=== PATIENT | male | born 1980 | race Caucasian/White ===

== ENCOUNTER 2022-11-28 07:03 | Inpatient (IN) ==
[2022-11-28] MEDS ORDERED: fentaNYL citrate PF 100 MCG/2 ML VIAL ONE ×2 (07:07→09:34)
[2022-11-28] MEDS ORDERED: niCARdipine HCL INJ 2.5 MG/ML 10 ML AMP ONE ×2 (07:07→09:34)
[2022-11-28] MEDS ORDERED: MIDAZOLAM HCL 1 MG/ML 2ML VIAL ONE ×2 (07:07→09:34)
[2022-11-28] MEDS ORDERED: HEPARIN (PORCINE) 1000 UNIT/ML 10 ML (CATH LAB USE ONLY) ONE ×2 (07:07→09:34)
[2022-11-28] MEDS ORDERED: ONDANSETRON INJ 2 MG/ML 2 ML VIAL IV STA (07:07)
[2022-11-28] MEDS ORDERED: FAMOTIDINE 20MG IV PUSH 20 MG/5 ML SYR IV STA (07:07)
[2022-11-28] MEDS ORDERED: NITROGLYCERIN/D5W 100MCG/ML 20ML SYR ONE ×2 (07:08→09:35)
[2022-11-28] MEDS ORDERED: SODIUM CHLORIDE 0.9% 1000ML 1,000 ML IV SCH ×2 (07:15→08:45)
[2022-11-28] MEDS ORDERED: MoRPHine SULFATE 4 MG/ML 1 ML CARP\\VIAL IV STA ×2 (07:16→07:42)
--- NOTE | 2022-11-28 07:26 | Emergency Department Note ---
Impression & Plan Chest pain, Elevated troponin, Tobacco abuse, ACS (acute coronary syndrome) ED Provider Note ED Provider Note NAME: ARMAND DUNHAM AGE:42 SEX: Male : 1980 ARRIVES VIA: EMS INFORMANT: Patient ED PROVIDER(s): Mireya Newby DO CHIEF COMPLAINT: Chest pain HPI: This is a 42-year-old male brought in by EMS as a heart alert. EMS called for command however they were unable to transmit the EKG. Based on their desc ription of patient's appearance and symptoms as well as their interpretation of the EKG, a heart alert was called. On arrival here, patient states that chest pain woke him up from sleep and he began feeling nauseated and had recurrent episodes of vomiting. He states he then felt short of breath and sweaty. Patient states he smokes 3 packs daily and his father has heart history although he does not know how old his father was when he first began having problems. Patient states he was drinking alcohol last night and does have a history of GERD. He states he did try Tylenol and an antacid at home without any relief this morning. No blood noted in the emesis. No accompanying abdominal pain. No recent illness or fevers. PAST MEDICAL HISTORY:See Below PAST SURGICAL HISTORY:See Below FAMILY HISTORY:See Below SOCIAL HISTORY:See Below HOME MEDICATIONS:See Below ALLERGIES:See Below VITALS:See Below PHYSICAL EXAMINATION: GENERAL: alert, unwell appearing, well nourished, no distress, non-toxic, diaphoresis noted EYE EXAM: normal conjunctiva, PERRL and EOM's grossly intact OROPHARYNX: no exudate, no erythema, lips, buccal mucosa, and tongue normal and mucous membranes are dry NECK: supple, no nuchal rigidity, no adenopathy, non-tender LUNGS: Clear to auscultation. Normal chest wall mechanics, no w/r/r HEART: no murmurs, S1 normal and S2 normal ABDOMEN: abdomen soft, non-tender, normo-active bowel sounds, no masses, no rebound or guarding. BACK: Back is symmetrical on inspection and there is no deformity, no midline tenderness, no CVA tenderness. SKIN: no rashes, petechiae, orbruising UPPER EXTREMITIES: upper extremities are grossly normal. FROM, nml pulses b/l. LOWER EXTREMITIES: No pitting edema. FROM, nml pulses b/l. NEURO EXAM: Normal sensorium, cranial nerves II-XII grossly intact, normal speech, no facial droop,nogross weakness of arms, no gross weakness of legs. Gross sensation intact. No ataxia. Vital Signs: reviewed and remarkable Differential Diagnosis: Differential diagnoses includes but is not limited to acute coronary syndrome, pericarditis, pulmonary embolus, aortic dissection, pneumonia, pneumothorax, musculoskeletal, Boerhaave's esophagus, Andria-Baldwin tear, GI bleed, GERD, perforation, as well as others were considered MEDICAL DECISION MAKING: This is a 42-year-old male who was brought in by EMS for chest pain. Patient initially made a heart alert, however upon review of EKGs on arrival and in conjunction with Dr. Walker, we elected to proceed with other evaluation and lieu of going straight for cardiac catheterization as patient with no obvious EKG changes suggestive of a STEMI and possible alternative diagnosis given addition al history that patient was able to report. Labs drawn and sent, IV established, EKG and chest x-ray performed at bedside and interpreted by me. Patient started on gentle IV fluid hydration, monitor on telemetry, given IV morphine, IV Zofran, and IV Pepcid initially. Patient received several doses of IV morphine due to ongoing pain, IV Protonix and nitro were added. Patient continued to have ongoing pain was found to have an elevated troponin. I discussed the case with Dr. Walker again we opted to perform CT angiography of the chest to rule out additional pathology. CTA was reassuring, and decision made in conjunction with Dr. Walker to send the patient for urgent cardiac catheterization. Patient and family updated at bedside several times, they verbalized understanding and were in agreement with the plan Consultation(s): 0720: Discussed with Dr. Walker at bedside. 08: Updated Dr. Walker. Patient is still having pain after several doses of morphine. After discussion, we will proceed with CT angiography of the chest as a precaution to rule out additional pathology. 09: CTA negative, Dr. Walker at bedside again and will plan to take for cardiac catheterization. 0930: Discussed with Jenna Barroso hospitalist team. ER Treatment Provided: See below Diagnostics Interpreted By Me: -ECG: Normal sinus at 89, normal axis, normal intervals, subtle mild elevation noted in 3, aVF, approximately 1/2 to 1 mm, no other reciprocal changes, appearance of likely early repolarization in precordial leads -Cardiac Monitoring: An order was placed for continuous cardiac monitoring. The monitor shows a rate of 68 with normal sinus rhythm. -Laboratory studies: As stated above and show below. -Imaging studies: X-ray Chest: A single view study of the chest was reviewed and was negative for cardiomegaly, focal infiltrate, effusion, pulmonary edema, or wide mediastinum. Triage Nursing Note Reviewed Prior/Outside Records Reviewed Procedures: [] Critical Care: Critical care of 52 min performed to assess and manage high likelihood of life- threatening ACS, involving labs and imaging performed with assessment to evaluate chest pain diagnosis with frequent reassessment. This time includes bedside time, treatment discussions with patient/family/consultants, documentation time and excludes procedure time. Past Med/Surg History Medical History Opioid use disorder on Subutex Surgical History H/O vasectomy History of cholecystectomy Family History (Updated 11/28/22 @ 12:02 by Toy Vasquez MD) Father Heart disease Social History Smoking Status: Current every day smoker Tobacco Type: Cigarettes Second Hand Exposure: No; Do You Dip or Chew Tobacco: No; Tobacco Cessation Education Requested by Patient: No Hx Alcohol Use: No (Social only) Hx Substance Use: No Preferred Language: Ukrainian Communication Ability: Effective Pad Extractor Tender Required: No Beliefs That Will Affect Care: None Current Living Situation: Spouse Other Information That Helps Us Care for You: No Feels Safe at Home: Yes Safety Concerns: Feels Safe At This Time Assistive Devices: None Allergies Allergies Allergy/AdvReac Type Severity Reaction Status Date / Time No Known Allergies Allergy Verified 09/09/18 16:47 Home Meds Home Medications Medication Instructions Recorded Confirmed buprenorphine HCl 8 mg sublingual 8 mg sublingual TID 11/28/22 11/28/22 tablet Results & Data (ED) Vital Signs Vital Signs - 24 hr 11/28/22 07:05 11/28/22 07:34 11/28/22 07:36 Pulse Rate 90 Pulse Rate [Apical] Pulse Rhythm [Apical] Respiratory Rate 20 Respiratory Effort / Characteristics Non-Labored Respiratory Depth Normal Blood Pressure [Right Arm] Blood Pressure Mean [Right Arm] Pulse Oximetry 94 93 95 Oxygen Delivery Method Room Air Room Air Room Air Oxygen Flow Rate 0 Sepsis Recent Fever Within 48 Hours No Sepsis New/Unexplained Change in Mental Status N/A Sepsis Action Taken by Nursing No Action Required Oxygen Flow Rate - Titration 2 Pulse Oximetry Post Tiitration 96 11/28/22 07:18 11/28/22 08:12 11/28/22 08:30 Pulse Rate 81 Pulse Rate [Apical] 65 66 Pulse Rhythm [Apical] Regular Respiratory Rate 15 22 Respiratory Effort / Characteristics Non-Labored Spontaneous Non-Labored Spontaneous Respiratory Depth Normal Normal Blood Pressure [Right Arm] 136/93 137/89 Blood Pressure Mean [Right Arm] 107 105 Pulse Oximetry 96 97 Oxygen Delivery Method Room Air Room Air Oxygen Flow Rate Sepsis Recent Fever Within 48 Hours Sepsis New/Unexplained Change in Mental Status Sepsis Action Taken by Nursing Oxygen Flow Rate - Titration Pulse Oximetry Post Tiitration 11/28/22 09:30 Pulse Rate Pulse Rate [Apical] 68 Pulse Rhythm [Apical] Respiratory Rate 19 Respiratory Effort / Characteristics Non-Labored Spontaneous Respiratory Depth Normal Blood Pressure [Right Arm] 145/93 H Blood Pressure Mean [Right Arm] 110 Pulse Oximetry 94 Oxygen Delivery Method Room Air Oxygen Flow Rate Sepsis Recent Fever Within 48 Hours Sepsis New/Unexplained Change in Mental Status Sepsis Action Taken by Nursing Oxygen Flow Rate - Titration Pulse Oximetry Post Tiitration Laboratory Data 11/28/22 07:09 11/28/22 07:09 Lab Results 11/28/22 11/28/22 11/28/22 Range/Units 07:09 07:09 07:09 WBC 16.67 H (4.8-10.8) K/ul RBC 5.92 (4.70-6.10) M/uL Hgb 19.6 H (14.0-18.0) g/dl POC Hgb (14.0-18.0) g/dl Hct 53.9 H (42.0-52.0) % POC Hct (42-52) % MCV 91.0 (80.0-100.0) fL MCH 33.1 (25.0-34.0) pg MCHC 36.4 H (32.0-36.0) g/dL RDW Std Deviation 42.0 (36.4-46.3) fL RDW Coeff of Valentina 12.8 (11.5-14.5) % Plt Count 359 (130-400) K/uL MPV 9.6 (9.4-12.4) fL Immature Gran % (Auto) 0.8 % Neut % (Auto) 85.1 % Lymph % (Auto) 9.2 % Powell % (Auto) 4.2 % Eos % (Auto) 0.1 % Baso % (Auto) 0.6 % Neut # (Auto) 14.19 H (1.40-6.50) K/uL Lymph # (Auto) 1.54 (1.2-3.4) K/uL Powell # (Auto) 0.70 H (0.11-0.59) K/uL Eos # (Auto) 0.01 (0-0.50) K/uL Baso # (Auto) 0.10 (0-0.2) K/uL Immature Gran # (Auto) 0.13 (0.01-0.20) K/uL PT 11.4 (9.0-12.0) Seconds INR 1.0 (0.9-1.1) APTT 26.2 (21.0-31.0) Seconds PTT Ratio 0.9 Activ Coag Time Kaolin (94-140) SECONDS POC Sodium (135-144) mmol/L Sodium 139 (136-145) mmol/L POC Potassium (3.3-5.0) mmol/L Potassium 4.4 (3.5-5.1) mmol/L POC Chloride (101-112) mmol/L Chloride 102 (98-107) mmol/L Carbon Dioxide 27 (21-32) mmol/L POC Total CO2 (24-31) mmol/L Anion Gap 10 (3-11) POC Anion Gap (16-25) mmol/L POC BUN (7-18) mg/dl BUN 8 (6-23) mg/dl Creatinine 0.88 (0.6-1.4) mg/dl POC Creatinine (0.6-1.3) mg/dl Est Cr Clr Drug Dosing 115.9 ml/min Est GFR ( Amer) 121.1 ml/min Est GFR (Non-Af Amer) 104.5 ml/min BUN/Creatinine Ratio 9.1 L (10-20) Glucose 124 H (70-99(Fasting)) mg/dl POC Glucose (other) (70-99) mg/dl Calcium 9.7 (8.6-10.3) mg/dl POC Ioniz Calcium Nohelia (1.12-1.32) mmol/l Magnesium 2.1 (1.7-2.4) mg/dl Total Bilirubin 0.6 (0.2-1.0) mg/dl AST 44 H (13-39) U/L ALT 60 H (7-52) U/L Alkaline Phosphatase 111 H (34-104) U/L Total Creatine Kinase 177 (30-223) U/L Troponin I High Sens 300.5 H* (0-20) pg/ml B-Natriuretic Peptide (0-100) pg/ml Total Protein 8.2 (6.0-8.3) gm/dl Albumin 4.7 (3.4-5.0) gm/dl Globulin 3.5 (2.5-4.0) gm/dl Albumin/Globulin Ratio 1.3 (0.9-2) Lipase 23 (11-82) U/L TSH (0.300-4.500) uIu/ml SARS-CoV-2, RNA, NAAT (NEGATIVE) 11/28/22 11/28/22 11/28/22 Range/Units 07:09 07:09 07:13 WBC (4.8-10.8) K/ul RBC (4.70-6.10) M/uL Hgb (14.0-18.0) g/dl POC Hgb (14.0-18.0) g/dl Hct (42.0-52.0) % POC Hct (42-52) % MCV (80.0-100.0) fL MCH (25.0-34.0) pg MCHC (32.0-36.0) g/dL RDW Std Deviation (36.4-46.3) fL RDW Coeff of Valentina (11.5-14.5) % Plt Count (130-400) K/uL MPV (9.4-12.4) fL Immature Gran % (Auto) % Neut % (Auto) % Lymph % (Auto) % Powell % (Auto) % Eos % (Auto) % Baso % (Auto) % Neut # (Auto) (1.40-6.50) K/uL Lymph # (Auto) (1.2-3.4) K/uL Powell # (Auto) (0.11-0.59) K/uL Eos # (Auto) (0-0.50) K/uL Baso # (Auto) (0-0.2) K/uL Immature Gran # (Auto) (0.01-0.20) K/uL PT (9.0-12.0) Seconds INR (0.9-1.1) APTT (21.0-31.0) Seconds PTT Ratio Activ Coag Time Kaolin (94-140) SECONDS POC Sodium (135-144) mmol/L Sodium (136-145) mmol/L POC Potassium (3.3-5.0) mmol/L Potassium (3.5-5.1) mmol/L POC Chloride (101-112) mmol/L Chloride (98-107) mmol/L Carbon Dioxide (21-32) mmol/L POC Total CO2 (24-31) mmol/L Anion Gap (3-11) POC Anion Gap (16-25) mmol/L POC BUN (7-18) mg/dl BUN (6-23) mg/dl Creatinine (0.6-1.4) mg/dl POC Creatinine (0.6-1.3) mg/dl Est Cr Clr Drug Dosing ml/min Est GFR ( Amer) ml/min Est GFR (Non-Af Amer) ml/min BUN/Creatinine Ratio (10-20) Glucose (70-99(Fasting)) mg/dl POC Glucose (other) (70-99) mg/dl Calcium (8.6-10.3) mg/dl POC Ioniz Calcium Nohelia (1.12-1.32) mmol/l Magnesium (1.7-2.4) mg/dl Total Bilirubin (0.2-1.0) mg/dl AST (13-39) U/L ALT (7-52) U/L Alkaline Phosphatase (34-104) U/L Total Creatine Kinase (30-223) U/L Troponin I High Sens (0-20) pg/ml B-Natriuretic Peptide 26 (0-100) pg/ml Total Protein (6.0-8.3) gm/dl Albumin (3.4-5.0) gm/dl Globulin (2.5-4.0) gm/dl Albumin/Globulin Ratio (0.9-2) Lipase (11-82) U/L TSH 1.622 (0.300-4.500) uIu/ml SARS-CoV-2, RNA, NAAT NEGATIVE (NEGATIVE) 11/28/22 11/28/22 Range/Units 07:17 10:18 WBC (4.8-10.8) K/ul RBC (4.70-6.10) M/uL Hgb (14.0-18.0) g/dl POC Hgb 19.7 H (14.0-18.0) g/dl Hct (42.0-52.0) % POC Hct 58 H (42-52) % MCV (80.0-100.0) fL MCH (25.0-34.0) pg MCHC (32.0-36.0) g/dL RDW Std Deviation (36.4-46.3) fL RDW Coeff of Valentina (11.5-14.5) % Plt Count (130-400) K/uL MPV (9.4-12.4) fL Immature Gran % (Auto) % Neut % (Auto) % Lymph % (Auto) % Powell % (Auto) % Eos % (Auto) % Baso % (Auto) % Neut # (Auto) (1.40-6.50) K/uL Lymph # (Auto) (1.2-3.4) K/uL Powell # (Auto) (0.11-0.59) K/uL Eos # (Auto) (0-0.50) K/uL Baso # (Auto) (0-0.2) K/uL Immature Gran # (Auto) (0.01-0.20) K/uL PT (9.0-12.0) Seconds INR (0.9-1.1) APTT (21.0-31.0) Seconds PTT Ratio Activ Coag Time Kaolin 263 H (94-140) SECONDS POC Sodium 140 (135-144) mmol/L Sodium (136-145) mmol/L POC Potassium 4.4 (3.3-5.0) mmol/L Potassium (3.5-5.1) mmol/L POC Chloride 101 (101-112) mmol/L Chloride (98-107) mmol/L Carbon Dioxide (21-32) mmol/L POC Total CO2 25 (24-31) mmol/L Anion Gap (3-11) POC Anion Gap 19.0 (16-25) mmol/L POC BUN 8 (7-18) mg/dl BUN (6-23) mg/dl Creatinine (0.6-1.4) mg/dl POC Creatinine 0.8 (0.6-1.3) mg/dl Est Cr Clr Drug Dosing ml/min Est GFR ( Amer) ml/min Est GFR (Non-Af Amer) ml/min BUN/Creatinine Ratio (10-20) Glucose (70-99(Fasting)) mg/dl POC Glucose (other) 131 H (70-99) mg/dl Calcium (8.6-10.3) mg/dl POC Ioniz Calcium Nohelia 1.11 L (1.12-1.32) mmol/l Magnesium (1.7-2.4) mg/dl Total Bilirubin (0.2-1.0) mg/dl AST (13-39) U/L ALT (7-52) U/L Alkaline Phosphatase (34-104) U/L Total Creatine Kinase (30-223) U/L Troponin I High Sens (0-20) pg/ml B-Natriuretic Peptide (0-100) pg/ml Total Protein (6.0-8.3) gm/dl Albumin (3.4-5.0) gm/dl Globulin (2.5-4.0) gm/dl Albumin/Globulin Ratio (0.9-2) Lipase (11-82) U/L TSH (0.300-4.500) uIu/ml SARS-CoV-2, RNA, NAAT (NEGATIVE) Administered Medications Metoprolol Tartrate (Metoprolol Tartrate 25 Mg Tab) 25 mg PO TID LIS Stop: 12/28/22 20:59 Last Admin: 11/28/22 20:15 Dose: 25 mg Documented By: AK Nicotine (Nicotine 21 Mg/24 Hr Tdsy) 21 mg TD QAM LIS Stop: 12/28/22 11:29 Last Admin: 11/28/22 13:11 Dose: 21 mg Documented By: CA Ticagrelor (Ticagrelor 90 Mg Tab) 90 mg PO BID LIS Stop: 12/28/22 20:59 Last Admin: 11/28/22 20:15 Dose: 90 mg Documented By: BEATRICE Discontinued Medications Buprenorphine HCl (Buprenorphine Hcl 8 Mg Subl) 8 mg SL TID LIS Stop: 12/28/22 13:59 Last Admin: 11/28/22 20:13 Dose: 8 mg Documented By: Admin: 11/28/22 13:11 Dose: 8 mg Documented By: MARKY Fentanyl Citrate (Fentanyl Citrate Pf 100 Mcg/2 Ml Vial) Confirm Administered Dose 100 mcg .ROUTE .STK-MED ONE Stop: 11/28/22 07:08 Last Admin: 11/28/22 11:33 Dose: Not Given Documented By: MARKY Fentanyl Citrate (Fentanyl Citrate Pf 100 Mcg/2 Ml Vial) 50 mcg IV NOW STA Stop: 11/28/22 08:11 Last Admin: 11/28/22 08:24 Dose: 50 mcg Documented By: VANNESA Fentanyl Citrate (Fentanyl Citrate Pf 100 Mcg/2 Ml Vial) Confirm Administered Dose 100 mcg .ROUTE .STK-MED ONE Stop: 11/28/22 09:35 Last Admin: 11/28/22 11:34 Dose: Not Given Documented By: MARKY Heparin Sodium (Porcine) (Heparin (Porcine) 1000 Unit/Ml 10 Ml (Jordan Worker Use Only)) Confirm Administered Dose 10,000 units .ROUTE .STK-MED ONE Stop: 11/28/22 07:08 Last Admin: 11/28/22 11:34 Dose: Not Given Documented By: MARKY Heparin Sodium (Porcine) (Heparin (Porcine) 1000 Unit/Ml 10 Ml (Jordan Worker Use Only)) Confirm Administered Dose 10,000 units .ROUTE .STK-MED ONE Stop: 11/28/22 09:35 Last Admin: 11/28/22 11:34 Dose: Not Given Documented By: MARKY Heparin Sodium/Sodium Chloride (Heparin In Nss Infusion 1000 Unit/500 Ml (2 U/Ml) Bag) Confirm Administered Dose 3,000 units IV .STK-MED ONE Stop: 11/28/22 07:09 Last Admin: 11/28/22 11:34 Dose: Not Given Documented By: MARKY Heparin Sodium/Sodium Chloride (Heparin In Nss Infusion 1000 Unit/500 Ml (2 U/Ml) Bag) Confirm Administered Dose 3,000 units IV .STK-MED ONE Stop: 11/28/22 09:35 Last Admin: 11/28/22 11:35 Dose: Not Given Documented By: MARKY Famotidine (Pepcid 20mg Iv Push) 20 mg in 5 mls @ 2.5 mls/min IV NOW STA Stop: 11/28/22 07:08 Last Admin: 11/28/22 07:18 Dose: 2.5 mls/min Documented By: AM Sodium Chloride (Nss 1000ml) 1,000 mls @ 125 mls/hr IV .Q8H LIS Stop: 12/28/22 07:14 Last Infusion: 11/28/22 09:00 Dose: 0 mls/hr Documented By: Admin: 11/28/22 07:20 Dose: 125 mls/hr Documented By: AM Acetaminophen (Ofirmev) 1,000 mg in 100 mls @ 400 mls/hr IV NOW STA Stop: 11/28/22 07:57 Last Infusion: 11/28/22 08:03 Dose: 0 mls/hr Documented By: Admin: 11/28/22 07:48 Dose: 400 mls/hr Documented By: VANNESA Pantoprazole Sodium 40 mg/ (Syringe) 10 mls @ 5 mls/min IV NOW ONE Stop: 11/28/22 08:11 Last Admin: 11/28/22 09:00 Dose: 5 mls/min Documented By: VANNESA Sodium Chloride (Nss 1000ml) 1,000 mls @ 100 mls/hr IV .Q10H LIS Stop: 11/28/22 13:09 Last Infusion: 11/28/22 17:21 Dose: 0 mls/hr Documented By: Admin: 11/28/22 09:02 Dose: 125 mls/hr Documented By: VANNESA Ioversol (Optiray 320 500ml) 120 ml IV ONCE ONE Stop: 11/28/22 08:54 Last Admin: 11/28/22 08:54 Dose: 120 ml Documented By: JENELLE Metoprolol Tartrate (Metoprolol Tartrate 25 Mg Tab) 12.5 mg PO TID LIS Stop: 12/28/22 13:59 Last Admin: 11/28/22 13:11 Dose: 12.5 mg Documented By: MARKY Metoprolol Tartrate (Metoprolol Tartrate 25 Mg Tab) 25 mg PO NOW STA Stop: 11/28/22 15:16 Last Admin: 11/28/22 15:31 Dose: 25 mg Documented By: CA Metoprolol Tartrate (Metoprolol Tartrate 1 Mg/Ml Vial) 5 mg IV NOW STA Stop: 11/28/22 15:17 Last Admin: 11/28/22 15:31 Dose: 5 mg Documented By: CA Midazolam HCl (Midazolam Hcl 1 Mg/Ml 2ml Vial) Confirm Administered Dose 2 mg .ROUTE .STK-MED ONE Stop: 11/28/22 07:08 Last Admin: 11/28/22 11:34 Dose: Not Given Documented By: CA Midazolam HCl (Midazolam Hcl 1 Mg/Ml 2ml Vial) Confirm Administered Dose 2 mg .ROUTE .STK-MED ONE Stop: 11/28/22 09:35 Last Admin: 11/28/22 11:35 Dose: Not Given Documented By: CA Morphine Sulfate (Morphine Sulfate 4 Mg/Ml 1 Ml Carp\Vial) 4 mg IV NOW STA Stop: 11/28/22 07:17 Last Admin: 11/28/22 07:22 Dose: 4 mg Documented By: AM Morphine Sulfate (Morphine Sulfate 4 Mg/Ml 1 Ml Carp\Vial) 4 mg IV NOW STA Stop: 11/28/22 07:43 Last Admin: 11/28/22 07:46 Dose: 4 mg Documented By: Nicardipine HCl (Nicardipine Hcl Inj 2.5 Mg/Ml 10 Ml Amp) Confirm Administered Dose 25 mg .ROUTE .STK-MED ONE Stop: 11/28/22 07:08 Last Admin: 11/28/22 11:34 Dose: Not Given Documented By: MARKY Nicardipine HCl (Nicardipine Hcl Inj 2.5 Mg/Ml 10 Ml Amp) Confirm Administered Dose 25 mg .ROUTE .STK-MED ONE Stop: 11/28/22 09:35 Last Admin: 11/28/22 11:35 Dose: Not Given Documented By: MARKY Nitroglycerin (Nitroglycerin 2% Ointment 30gm Tube) 1 inch EXT NOW STA Stop: 11/28/22 08:08 Last Admin: 11/28/22 08:12 Dose: 1 inch Documented By: Nitroglycerin/Dextrose (Nitroglycerin/D5w 100mcg/Ml 20ml Syr) Confirm Administered Dose 2,000 mcg .ROUTE .STK-MED ONE Stop: 11/28/22 07:09 Last Admin: 11/28/22 11:34 Dose: Not Given Documented By: MARKY Nitroglycerin/Dextrose (Nitroglycerin/D5w 100mcg/Ml 20ml Syr) Confirm Admini stered Dose 2,000 mcg .ROUTE .STK-MED ONE Stop: 11/28/22 09:36 Last Admin: 11/28/22 11:35 Dose: Not Given Documented By: MARKY Ondansetron HCl (Ondansetron Inj 2 Mg/Ml 2 Ml Vial) 4 mg IV NOW STA Stop: 11/28/22 07:08 Last Admin: 11/28/22 07:17 Dose: 4 mg Documented By: AM Ticagrelor (Ticagrelor 90 Mg Tab) Confirm Administered Dose 180 mg .ROUTE .STK- MED ONE Stop: 11/28/22 10:38 Last Admin: 11/28/22 11:00 Dose: 180 mg Documented By: MARKY Imaging Data Radiologist's Impression: Chest X-Ray 11/28/22 07:07 XR chest 1V portable HISTORY: Chest pain, nonspecific COMPARISON: None. FINDINGS: There are low lung volumes. No focal lung consolidations to suggest a pneumonia. No evidence for pulmonary edema. The cardiac silhouette is top normal in size. No pleural effusions. No pneumothorax. No acute fractures identified. Right-sided supraspinatus calcific tendinitis is noted. IMPRESSION: Low lung volumes. Otherwise, no acute process within the chest. ACT 112: Negative or not required by law. Electronically signed by: Elias Sylvester M.D. 11/28/2022 8:13 AM Chest CTA 11/28/22 08:35 CHEST CTA for AORTIC DISSECTION CT DOSE: 767.23 mGy.cm HISTORY: Chest pain extend into back and bilateral upper extremity TECHNIQUE: Multiaxial CT images of the chest were performed both before and after the intravenous administration of contrast to evaluate the aorta. Maximal intensity projection images were also obtained. A dose lowering technique was utilized adhering to the principles of ALARA. COMPARISON STUDY: None. FINDINGS: No acute fractures identified within the chest. No pneumothorax. There is mild diffuse bronchial wall thickening. Otherwise, the central airways are patent. Mild emphysema is noted. There is a 3 mm nodule within the left lower lobe on image 194. There are 2 subcentimeter nodules within the left lower lobe on image 143 with the largest measuring 4 mm. There is a 5 mm subpleural nodule along the left major fissure on image 150. Patchy groundglass densities within the lower lobes posteriorly are nonspecific but favor dependent change /atelectasis. A mild pneumonitis could also have a similar appearance in the appropriate clinical setting. No evidence for pulmonary edema. Noncontrast imaging through the chest shows no evidence for an intramural hematoma within the thoracic aorta. The thoracic aorta is normal and course and caliber with no evidence for a dissection. The heart is top normal in size. The central pulmonary arteries are patent. A 5 mm right thyroid nodule does not meet CT criteria for follow-up. Limited views of the upper abdomen demonstrate a normal liver, spleen, and adrenal glands. Prior cholecystectomy. Normal esophagus. No mediastinal or hilar lymphadenopathy. IMPRESSION: 1. No evidence for an aortic dissection. 2. The central pulmonary arteries are patent. 3. Mild emphysema. 4. Patchy groundglass densities within the lower lobes posteriorly are nonspecific but favor dependent change/atelectasis. A mild pneumonitis could also have a similar appearance in the appropriate clinical setting. 5. A few scattered subcentimeter pulmonary nodules which measure up to 5 mm as described above. Please refer to below summary of Fleischner criteria recommendations for follow- up of incidental CT nodules (Farideh Person, Guidelines for management of small pulmonary nodules detected on CT scans: A statement from the Fleischner Society, Radiology 237: [phone].) SOLID NODULES Solitary nodule size: <6 mm * Low risk patients: no follow-up needed * high risk patients: optional CT at 12 months Solitary nodule size: 6-8 mm * Low risk patients: follow-up at 6-12 months, then consider further follow-up at 18-24 months * high risk patients: initial follow-up CT at 6-12 months and then at 18-24 months if no change Solitary nodule size: >8 mm * either low or high risk patients - consider follow-up CT at 3 months, and/or CT-PET, and/or biopsy Multiple nodules size: <6 mm * Low risk patients: no routine follow-up * high risk patients: optional CT at 12 months Multiple nodules size: 6-8 mm * Low risk patients: follow-up at 3-6 months, then consider further follow-up at 18-24 months * high risk patients: follow-up at 3-6 months, then at 18-24 months if no change Multiple nodules size: >8 mm * Low risk patients: follow-up at 3-6 months, then consider further follow-up at 18-24 months * high risk patients: follow-up at 3-6 months, then at 18-24 months if no change Note: newly detected indeterminate nodule in persons 35 years of age or older. * Low risk patients: minimal or absent history of smoking and/or other known risk factors * high risk patients: history of smoking or of other known risk factors (e.g. first degree relative with lung cancer, or exposure to asbestos, radon, uranium) * if a nodule up to 8 mm is partly solid or is ground glass further follow-up is required after 24 months to exclude possible slow growing adenocarcinoma (PEDRO) SUBSOLID NODULES Solitary pure ground-glass nodule * nodule size <6 mm - no CT follow-up required * nodule size >=6 mm - follow-up CT at 6-12 months, then every 2 years until 5 years Solitary part-solid nodule * nodule size <6 mm - no CT follow-up required * nodule size >=6 mm - follow-up CT at 3-6 months. If unchanged, and solid component remains <6 mm, then annual follow-up for 5 years Multiple subsolid nodules * nodule size <6 mm - follow-up CT at 3-6 months, consider further follow-up at 2 and 4 years if stable * nodule size >=6 mm - follow-up CT at 3-6 months, subsequent management based on the most suspicious nodule(s) ACT 112: Negative or not required by law. Electronically signed by: Elias Sylvester M.D. 11/28/2022 9:16 AM Discharge Plan Visit Data Chief Complaint: Chest Pain Stated Complaint: CHEST PAIN ED Provider: Mireya Newby Discharge Problem: Chest pain, Elevated troponin, Tobacco abuse, ACS (acute coronary syndrome) Patient Disposition: Admitted As Inpatient Discharge Instructions Interventions: ED Discharge Assessment Last Done: 11/28/22 09:49
[2022-11-28 07:31] LABS: iSTAT Creatinine 0.8 mg/dl (0.6-1.3); iSTAT Hemoglobin 19.7 g/dl (14.0-18.0); iSTAT Ionized Calcium 1.11 mmol/l (1.12-1.32); iSTAT Potassium 4.4 mmol/L (3.3-5.0)
[2022-11-28 07:36] LABS: Basophils % (auto) 0.6 %; Eosinophils # (auto) 0.01 K/uL (0-0.50); Eosinophils % (auto) 0.1 %; Hematocrit (blood only) 53.9 % (42.0-52.0); Hemoglobin 19.6 g/dl (14.0-18.0); Immature Granulocytes # (auto) 0.13 K/uL (0.01-0.20); Immature Granulocytes % (auto) 0.8 %; Lymphocytes # (auto) 1.54 K/uL (1.2-3.4); Lymphocytes % (auto) 9.2 %; Mean Corpuscular Hemoglobin 33.1 pg (25.0-34.0); Mean Corpuscular Hgb Conc 36.4 g/dL (32.0-36.0); Mean Platelet Volume 9.6 fL (9.4-12.4); Monocytes % (auto) 4.2 %; Neutrophils # (auto) 14.19 K/uL (1.40-6.50); Neutrophils % (auto) 85.1 %; Platelet Count 359 K/uL (130-400); RDW Coefficient of Variation 12.8 % (11.5-14.5); Red Blood Count 5.92 M/uL (4.70-6.10); White Blood Count 16.67 K/ul (4.8-10.8)
[2022-11-28] MEDS ORDERED: ACETAMINOPHEN 1,000 MG/100 ML VIAL IV STA (07:43)
[2022-11-28 07:49] LABS: Albumin Globulin Ratio 1.3 (0.9-2); Albumin Level 4.7 gm/dl (3.4-5.0); BUN Creatinine Ratio 9.1 (10-20); Bilirubin,Total 0.6 mg/dl (0.2-1.0); Calcium 9.7 mg/dl (8.6-10.3); Creatinine Clr Calc Pharmacy 115.9 ml/min; Est GFR (African American) 121.1 ml/min; Est GFR (Non-African American) 104.5 ml/min; Globulin 3.5 gm/dl (2.5-4.0); Magnesium 2.1 mg/dl (1.7-2.4); Potassium 4.4 mmol/L (3.5-5.1); Total Protein 8.2 gm/dl (6.0-8.3)
[2022-11-28 07:59] LABS: Troponin I High Sensitivity 300.5 pg/ml (0-20)
[2022-11-28 08:03] LABS: Partial Thromboplastin Ratio 0.9; Partial Thromboplastin Time 26.2 Seconds (21.0-31.0); Prothrombin Time 11.4 Seconds (9.0-12.0)
[2022-11-28] MEDS ORDERED: NITROGLYCERIN 2% OINTMENT 30GM TUBE EXT STA (08:07)
[2022-11-28] MEDS ORDERED: fentaNYL citrate PF 100 MCG/2 ML VIAL IV STA (08:10)
[2022-11-28] MEDS ORDERED: PANTOprazole 40 MG in SYRINGE 0 ML IV ONE (08:10)
--- NOTE | 2022-11-28 08:14 | XRay Report ---
XR chest 1V portable HISTORY: Chest pain, nonspecific COMPARISON: None. FINDINGS: There are low lung volumes. No focal lung consolidations to suggest a pneumonia. No evidenc e for pulmonary edema. The cardiac silhouette is top normal in size. No pleural effusions. No pneumot horax. No acute fractures identified. Right-sided supraspinatus calcific tendinitis is noted. IMPRESSION: Low lung volumes. Otherwise, no acute process within the chest. ACT 112: Negative or not required by law. Electronically signed by: Elias Sylvester M.D. 11/28/2022 8:13 AM
[2022-11-28] MEDS ORDERED: OPTIRAY 320 500ml IV ONE (08:53)
--- NOTE | 2022-11-28 09:18 | CT Scan Report ---
CHEST CTA for AORTIC DISSECTION CT DOSE: 767.23 mGy.cm HISTORY: Chest pain extend into back and bilateral upper extremity TECHNIQUE: Multiaxial CT images of the chest were performed both before and after the intravenous adm inistration of contrast to evaluate the aorta. Maximal intensity projection images were also obtained . A dose lowering technique was utilized adhering to the principles of ALARA. COMPARISON STUDY: None. FINDINGS: No acute fractures identified within the chest. No pneumothorax. There is mild diffuse bron chial wall thickening. Otherwise, the central airways are patent. Mild emphysema is noted. There is a 3 mm nodule within the left lower lobe on image 194. There are 2 subcentimeter nodules within the le ft lower lobe on image 143 with the largest measuring 4 mm. There is a 5 mm subpleural nodule along t he left major fissure on image 150. Patchy groundglass densities within the lower lobes posteriorly a re nonspecific but favor dependent change/atelectasis. A mild pneumonitis could also have a similar a ppearance in the appropriate clinical setting. No evidence for pulmonary edema. Noncontrast imaging t hrough the chest shows no evidence for an intramural hematoma within the thoracic aorta. The thoracic aorta is normal and course and caliber with no evidence for a dissection. The heart is top normal in size. The central pulmonary arteries are patent. A 5 mm right thyroid nodule does not meet CT criter ia for follow-up. Limited views of the upper abdomen demonstrate a normal liver, spleen, and adrenal glands. Prior cholecystectomy. Normal esophagus. No mediastinal or hilar lymphadenopathy. IMPRESSION: 1. No evidence for an aortic dissection. 2. The central pulmonary arteries are patent. 3. Mild emphysema. 4. Patchy groundglass densities within the lower lobes posteriorly are nonspecific but favor dependen t change/atelectasis. A mild pneumonitis could also have a similar appearance in the appropriate clin ical setting. 5. A few scattered subcentimeter pulmonary nodules which measure up to 5 mm as describe d above. Please refer to below summary of Fleischner criteria recommendations for follow-up of incidental CT n odules (Farideh Person, Guidelines for management of small pulmonary nodules detected on CT scans: A sta tement from the Fleischner Society, Radiology 237: [phone].) SOLID NODULES Solitary nodule size: <6 mm * Low risk patients: no follow-up needed * high risk patients: optional CT at 12 months Solitary nodule size: 6-8 mm * Low risk patients: follow-up at 6-12 months, then consider further follow-up at 18-24 months * high risk patients: initial follow-up CT at 6-12 months and then at 18-24 months if no change Solitary nodule size: >8 mm * either low or high risk patients - consider follow-up CT at 3 months, and/or CT-PET, and/or biopsy Multiple nodules size: <6 mm * Low risk patients: no routine follow-up * high risk patients: optional CT at 12 months Multiple nodules size: 6-8 mm * Low risk patients: follow-up at 3-6 months, then consider further follow-up at 18-24 months * high risk patients: follow-up at 3-6 months, then at 18-24 months if no change Multiple nodules size: >8 mm * Low risk patients: follow-up at 3-6 months, then consider further follow-up at 18-24 months * high risk patients: follow-up at 3-6 months, then at 18-24 months if no change Note: newly detected indeterminate nodule in persons 35 years of age or older. * Low risk patients: minimal or absent history of smoking and/or other known risk factors * high risk patients: history of smoking or of other known risk factors (e.g. first degree relative with lung cancer, or exposure to asbestos, radon, uranium) * if a nodule up to 8 mm is partly solid or is ground glass further follow-up is required after 24 m onths to exclude possible slow growing adenocarcinoma (PEDRO) SUBSOLID NODULES Solitary pure ground-glass nodule * nodule size <6 mm - no CT follow-up required * nodule size >=6 mm - follow-up CT at 6-12 months, then every 2 years until 5 years Solitary part-solid nodule * nodule size <6 mm - no CT follow-up required * nodule size >=6 mm - follow-up CT at 3-6 months. If unchanged, and solid component remains <6 mm, then annual follow-up for 5 years Multiple subsolid nodules * nodule size <6 mm - follow-up CT at 3-6 months, consider further follow-up at 2 and 4 years if sta ble * nodule size >=6 mm - follow-up CT at 3-6 months, subsequent management based on the most suspiciou s nodule(s) ACT 112: Negative or not required by law. Electronically signed by: Elias Sylvester M.D. 11/28/2022 9:16 AM
--- NOTE | 2022-11-28 09:30 | Pre Anesthesia Assessment ---
Date of Service November 28, 2022 Pre Sedation Assessment Vital Signs Pulse Pulse Resp BP Pulse Ox O2 Del Method O2 Flow Rate 11/28/22 08:12 65 15 136/93 96 Room Air 11/28/22 07:18 81 11/28/22 07:36 95 Room Air 11/28/22 07:34 93 Room Air 0 11/28/22 07:05 90 20 94 Room Air Cardiovascular RRR, no murmur, no edema Respiratory normal respiratory effort, lungs clear to auscultation Pre-Sedation Airway Assessment Smoking Status: Heavy tobacco smoker Hx Sleep Apnea: No Hx Difficult Intubation: No Short, Thick Neck: No Thyromental Distance: > or= 3.5 Finger Breadths Oral Cavity: + WNL Mallampati Class: III ASA: ASA4 Procedure Planning Contraindications for Sedation: none Current Medications Reviewed: Yes Notes The planned sedation has been discussed with the patient. Informed Consent was obtained. I have identified the patient, determined the appropriateness of sedation and have assessed the patient immediately prior to the procedure. All medicine(s) and interventions are by my order.
--- NOTE | 2022-11-28 09:40 | Cardiology Consultation ---
Date of Consultation November 28, 2022 Assessment & Plan (1) ACS (acute coronary syndrome): Presentation consistent with high risk ACS and recommend proceeding with urgent cardiac catheterization and possible PCI. No apparent contraindications to procedure. Discussed risks, benefits, alternatives of procedure with patient and they are willing to proceed. Further recommendations pending findings of coronary angiography. History of Present Illness History of Present Illness Mr. Chacko is a 42-year-old man here with acute chest pain and elevated HS TropI, subtle ECG findings concerning for ACS. Patient seen emergently in the ED. No prior cardiac history. Currently patient takes no medications. Cardiac risk factors include ongoing smoking (2 to 3 packs a day), family history of CAD (father VT 50s, paternal grandfather VT 50s). Patient was awoken approximately 2 AM, around 5 hours prior to initial presentation with substernal chest pain radiating to bilateral shoulders. With initial pain he vomited and was diaphoretic. Patient reports drinking heavily the evening before. Also reports 1 episode of chest pain several days ago which occurred at rest and lasted minutes and relieved without intervention. Denies any new exertional symptoms. On presentation active chest pain. ECG showed sinus rhythm with incomplete right bundle branch block and subtle, <[address] elevations in V5/V6. Initial HS TropI 300. Chest CTA negative for dissection or PE. Mild emphysema with patchy groundglass densities in lower lobes. Patient continued to have ongoing chest pain despite morphine, nitro patch, protonix/famotidine. Allergies Allergy/AdvReac Type Severity Reaction Status Date / Time No Known Allergies Allergy Verified 09/09/18 16:47 Home Medications Medication Instructions Recorded Confirmed Type No Known Home Medications 09/09/18 09/09/18 History Patient History Medical History (Updated 11/28/22 @ 09:39 by Clem Walker MD) Acute cholecystitis Cervical strain, acute Neck pain Surgical History (Updated 09/09/18 @ 16:48 by Ludy Kincaid) H/O vasectomy Family History (Updated 09/09/18 @ 16:49 by Ludy Kincaid) Other No pertinent family history Social History Smoking Status: Heavy tobacco smoker Tobacco Type: Cigarettes Preferred Language: Taiwanese Feels Safe at Home: Yes Review of Systems Review of Systems: All systems reviewed & are unremarkable except as noted in HPI & below Physical Exam Physical Exam: General: Uncomfortable, diaphoretic HEENT: Sclerae anicteric Lungs: Clear anteriorly Cardiac: Regular rate and rhythm, no murmurs. Vascular: 2+ radial Abdomen: Soft, nontender Extremities: Well perfused, no peripheral edema Neuro: Nonfocal Psych: Alert orient x3, normal affect and mood Results & Data Vital Signs (Past 12 Hours) Vital Signs Pulse Pulse Resp BP Pulse Ox O2 Del Method O2 Flow Rate 11/28/22 08:12 65 15 136/93 96 Room Air 11/28/22 07:18 81 11/28/22 07:36 95 Room Air 11/28/22 07:34 93 Room Air 0 11/28/22 07:05 90 20 94 Room Air PG Care Time/CCT Total # of Minutes Spent Total Time Spent with Patient: Total time spent is greater than 50% in coordination of care (as documented) at patient's floor/unit and/or counseling patient: Coding Level of Care Code 59328 OFFICE CONSULT LVL M Diagnoses ACS (acute coronary syndrome) I24.9
--- NOTE | 2022-11-28 09:41 | Cardiac Catheterization ---
[facility] Data: Manager Of Photography Cardiac Status Clinical evaluation leading to the procedure CAD Presenation: Non STEMI Anginal Classification: CCS IV Diagnostic Physicians Name: Ramon Walker MD Closure Device Recommendations: PCI without planned CABG Cardiac Cath Procedure Full Procedure Date November 28, 2022 Pre-Procedure Diagnosis Pre-Procedure Diagnosis: Non STEMI AUC Score AUC Score: 8 Post-Procedure Diagnosis Post-Procedure Diagnosis: Severe CAD, Successful PCI and Elevated Intracardiac Pressures Procedure(s) Performed Procedure(s) Performed: Coronary Angiography, Left Heart Cath and Drug Eluting Stent Exceptional Student Education Aide Ramon Walker MD Clinical Geneticist(s) It Support Technician Estimated Blood Loss Estimated Blood Loss: 15 Medication(s) Medication(s): Fentanyl, Heparin, Lidocaine 1%, Nicardipine, Nitroglycerin and Versed Medication(s): Ticagrelor Summary of Findings Indication: ACS Access: 6 Fr right radial artery Catheters: [place], EBU 3.5 guide, pigtail Findings: LM -normal caliber, angiographically normal LAD -medium caliber midsegment luminal irregularities, distal vessel without significant disease and extends to apex. Medium bifurcating D1 20% ostial stenosis, no other significant disease. Circumflex -medium caliber, 30% ostial, 100% acute distal circumflex occlusion. After flow reestablished large left PLB without significant disease RCA -dominant, large caliber, no significant disease. Faint right to left collaterals. LVEDP -20 -- PCI -- Antithrombotic therapy: Heparin, ticagrelor Procedure: Left main cannulated with EBU 3.5 guide Health Care Facility Administrator 50 wire passed across lesion into distal vessel Distal circumflex lesion predilated with 2.5 compliant balloon Dilated lesion stented with 2.5 x 26 mm [place]y drug-eluting stent Stent post-dilated with 3.0 and 3.5 noncompliant balloons IC vasodilators administered for spasm Post procedure NARINDER 3 flow, stent well expanded with minimal residual stenosis and no apparent cardiac complications. Arterial Closure: TR band Summary: 1. Acute 100% distal circumflex occlusion 2. Mild non-culprit coronary artery disease -30% ostial circumflex 3. Elevated intracardiac filling pressure 4. Successful PCI of distal circumflex occlusion with single drug-eluting stent (2.5 x 26 mm [place]; postdilated with 3.5 NC). Recommendations: Admit to PCU for continued monitoring Loaded with ticagrelor 180 mg in Manager Of Photography Continue dual-antiplatelet therapy for at least 1 year. Trend troponins until peak, Check Echo Uptitrate beta-swati/GERALD as BP allows High-dose statin Smoking cessation Consult cardiac Rehab Hemodynamics Rest Ao:: 114/84/97 Final Ao: 117/76/95 LV: 111/20 Recommendations Recommendations: PCI without planned CABG Specimens Specimens: None Radiation Exposure (mGy) 2396 Contrast (mls) 125 Anesthesia Moderate 8987-5764 Procedural Complication(s) None Disposition PCU I attest to the content of the Intraoperative Record and any orders documented therein. Any exceptions are noted below. [facility] Card Cath Procedure Codes Cardiac Catheterization Procedure 1: Cardiovascular Cath Procedures: 52645 Coronaries and LHC (+/-LV) Moderate Sedation Procedure 1: Sedation/Anesthesia: 02347 Mod Sedation by the same physician;Init15 Min Child Age 5 & Up Procedure 2: Sedation/Anesthesia: 08988 Mod Sedation by the same physician; Ea [id number] Minutes Stenting Procedure 1: Cardiovascular Stent Procedures: 18229 Perc transluminal revascularization of acute sub/total occl, aMI PG Care Time/CCT Total # of Minutes Spent Total Time Spent with Patient: Total time spent is greater than 50% in coordination of care (as documented) at patient's floor/unit and/or counseling patient:
[2022-11-28] MEDS ORDERED: TICAGRELOR 90 MG TAB ONE (10:37)
[2022-11-28] MEDS ORDERED: ACETAMINOPHEN 325 MG TAB PO PRN (10:51)
[2022-11-28] MEDS ORDERED: NITROGLYCERIN SL 0.4 MG/TAB TAB SL PRN (10:51)
--- NOTE | 2022-11-28 12:12 | History & Physical Report ---
Date of Service November 28, 2022 Assessment & Plan (1) ACS (acute coronary syndrome): (2) Opioid use disorder: (3) Chest pain: (4) Elevated troponin: (5) Tobacco abuse: Plan: Admit to PCU Vitals as protocol activity as tolerated Diet : Cardiac diet Cardiology has evaluated the patient post cath. Patient on asa and brilinta. Advised patient to be on them for the past 1 year. continue b blockers and statins ( high dose). smoking cessation advised Opioid use disorder : continue subutex 24 mg Cardiac Rehab ordered Code status:full coed Admission and Anticipated Discharge Date Admission Date: November 28, 2022 History of Present Illness Chief Complaint: Chest pain for the past 6 hours Primary Care Provider: NO PCP 42 year old male with episodes of chest pain started last night at 1 am . was a 05/10 internsity lasted for a few hours and hence decided to come to hospital. Pain is retrosternal and radiating to the jaw and both hands. no headaches or loss of consciousness. no shortness of breath. no recent travel . No history of recent drug intake is on a stable dose of subutex for more than 2 yrs no fevers. was seen in the Er as a heart alert. initial ct for pulmonary embolism was negative. Patient was noted to have a nstemi. ( elevated trops) Cardiac cath showed 1. Acute 100% distal circumflex occlusion 2. Mild non- culprit coronary artery disease -30% ostial circumflex with successful PCI of distal circumflex occlusion with single drug-eluting stent (2.5 x 26 mm [place]; postdilated with 3.5 NC). Patient was interviewed post cath and showed no evidence of sedation or increased bleeding in the right wrist. Allergies Allergy/AdvReac Type Severity Reaction Status Date / Time No Known Allergies Allergy Verified 09/09/18 16:47 Home Medications Medication Instructions Recorded Confirmed Type buprenorphine HCl 8 mg sublingual 8 mg sublingual TID 11/28/22 11/28/22 History tablet Past Med/Surg History Medical History Opioid use disorder on Subutex Surgical History H/O vasectomy History of cholecystectomy Family History (Updated 11/28/22 @ 12:01 by Toy Vasquez MD) Father Heart disease Social History Smoking Status: Current every day smoker Tobacco Type: Cigarettes Second Hand Exposure: No; Do You Dip or Chew Tobacco: No; Tobacco Cessation Education Requested by Patient: No Hx Alcohol Use: No (Social only) Hx Substance Use: No Preferred Language: Indonesian Communication Ability: Effective 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 Physical Exam Physical Exam: Neuro: AAOx4, PERRLA, no aphasia , no memory changes, HEENT: head normocephalic, moist mucus membranes CV: S1/S2, (-) M/G/R, (-) edema, cap refill < 3 seconds Resp: Lungs CTA in all cesar. On RA GI: Abdomen S/NT/ND, Ax4 bowel sounds, (-) CVA tenderness Musculoskeletal: 5/5 B/L UE strength, 5/5 B/L LE strength. No gait disturbance Skin: (-) rashes , (-) erythema. Psych: normal affect right wrist shows no evidence of bleeding Results & Data Results & Data Vital Signs (Past 12 Hours) Vital Signs Temp Pulse Pulse Resp BP Pulse Ox O2 Del Method 11/28/22 11:13 36.6 C 72 16 142/81 H 93 Room Air 11/28/22 09:30 68 19 145/93 H 94 Room Air 11/28/22 08:30 66 22 137/89 97 Room Air 11/28/22 08:12 65 15 136/93 96 Room Air 11/28/22 07:18 81 11/28/22 07:36 95 Room Air 11/28/22 07:34 93 Room Air 11/28/22 07:05 90 20 94 Room Air O2 Flow Rate 11/28/22 11:13 11/28/22 09:30 11/28/22 08:30 11/28/22 08:12 11/28/22 07:18 11/28/22 07:36 11/28/22 07:34 0 11/28/22 07:05 Laboratory Results Laboratory Results WBC 16.67 K/ul (4.8-10.8) H 11/28/22 07:09 RBC 5.92 M/uL (4.70-6.10) 11/28/22 07:09 Hgb 19.6 g/dl (14.0-18.0) H 11/28/22 07:09 POC Hgb 19.7 g/dl (14.0-18.0) H 11/28/22 07:17 Hct 53.9 % (42.0-52.0) H 11/28/22 07:09 POC Hct 58 % (42-52) H 11/28/22 07:17 MCV 91.0 fL (80.0-100.0) 11/28/22 07:09 MCH 33.1 pg (25.0-34.0) 11/28/22 07:09 MCHC 36.4 g/dL (32.0-36.0) H 11/28/22 07:09 RDW Std Deviation 42.0 fL (36.4-46.3) 11/28/22 07:09 RDW Coeff of Valentina 12.8 % (11.5-14.5) 11/28/22 07:09 Plt Count 359 K/uL (130-400) 11/28/22 07:09 MPV 9.6 fL (9.4-12.4) 11/28/22 07:09 Immature Gran % (Auto) 0.8 % 11/28/22 07:09 Neut % (Auto) 85.1 % 11/28/22 07:09 Lymph % (Auto) 9.2 % 11/28/22 07:09 [place] % (Auto) 4.2 % 11/28/22 07:09 Eos % (Auto) 0.1 % 11/28/22 07:09 Baso % (Auto) 0.6 % 11/28/22 07:09 Neut # (Auto) 14.19 K/uL (1.40-6.50) H 11/28/22 07:09 Lymph # (Auto) 1.54 K/uL (1.2-3.4) 11/28/22 07:09 [place] # (Auto) 0.70 K/uL (0.11-0.59) H 11/28/22 07:09 Eos # (Auto) 0.01 K/uL (0-0.50) 11/28/22 07:09 Baso # (Auto) 0.10 K/uL (0-0.2) 11/28/22 07:09 Immature Gran # (Auto) 0.13 K/uL (0.01-0.20) 11/28/22 07:09 PT 11.4 Seconds (9.0-12.0) 11/28/22 07:09 INR 1.0 (0.9-1.1) 11/28/22 07:09 APTT 26.2 Seconds (21.0-31.0) 11/28/22 07:09 PTT Ratio 0.9 11/28/22 07:09 Activ Coag Time Kaolin 263 SECONDS (94-140) H 11/28/22 10:18 POC Sodium 140 mmol/L (135-144) 11/28/22 07:17 Sodium 139 mmol/L (136-145) 11/28/22 07:09 POC Potassium 4.4 mmol/L (3.3-5.0) 11/28/22 07:17 Potassium 4.4 mmol/L (3.5-5.1) 11/28/22 07:09 POC Chloride 101 mmol/L (101-112) 11/28/22 07:17 Chloride 102 mmol/L (98-107) 11/28/22 07:09 Carbon Dioxide 27 mmol/L (21-32) 11/28/22 07:09 POC Total CO2 25 mmol/L (24-31) 11/28/22 07:17 Anion Gap 10 (3-11) 11/28/22 07:09 POC Anion Gap 19.0 mmol/L (16-25) 11/28/22 07:17 POC BUN 8 mg/dl (7-18) 11/28/22 07:17 BUN 8 mg/dl (6-23) 11/28/22 07:09 Creatinine 0.88 mg/dl (0.6-1.4) 11/28/22 07:09 POC Creatinine 0.8 mg/dl (0.6-1.3) 11/28/22 07:17 Est Cr Clr Drug Dosing 115.9 ml/min 11/28/22 07:09 Est GFR ( Amer) 121.1 ml/min 11/28/22 07:09 Est GFR (Non-Af Amer) 104.5 ml/min 11/28/22 07:09 BUN/Creatinine Ratio 9.1 (10-20) L 11/28/22 07:09 Glucose 124 mg/dl (70-99(Fasting)) H 11/28/22 07:09 POC Glucose (other) 131 mg/dl (70-99) H 11/28/22 07:17 Calcium 9.7 mg/dl (8.6-10.3) 11/28/22 07:09 POC Ioniz Calcium [place]helia 1.11 mmol/l (1.12-1.32) L 11/28/22 07:17 Magnesium 2.1 mg/dl (1.7-2.4) 11/28/22 07:09 Total Bilirubin 0.6 mg/dl (0.2-1.0) 11/28/22 07:09 AST 44 U/L (13-39) H 11/28/22 07:09 ALT 60 U/L (7-52) H 11/28/22 07:09 Alkaline Phosphatase 111 U/L (34-104) H 11/28/22 07:09 Total Creatine Kinase 177 U/L (30-223) 11/28/22 07:09 Troponin I High Sens 300.5 pg/ml (0-20) H* 11/28/22 07:09 B-Natriuretic Peptide 26 pg/ml (0-100) 11/28/22 07:09 Total Protein 8.2 gm/dl (6.0-8.3) 11/28/22 07:09 Albumin 4.7 gm/dl (3.4-5.0) 11/28/22 07:09 Globulin 3.5 gm/dl (2.5-4.0) 11/28/22 07:09 Albumin/Globulin Ratio 1.3 (0.9-2) 11/28/22 07:09 Lipase 23 U/L (11-82) 11/28/22 07:09 TSH 1.622 uIu/ml (0.300-4.500) 11/28/22 07:09 SARS-CoV-2, RNA, NAAT NEGATIVE (NEGATIVE) 11/28/22 07:13 Impressions Chest X-Ray 11/28/22 07:07 XR chest 1V portable HISTORY: Chest pain, nonspecific COMPARISON: None. FINDINGS: There are low lung volumes. No focal lung consolidations to suggest a pneumonia. No evidence for pulmonary edema. The cardiac silhouette is top normal in size. No pleural effusions. No pneumothorax. No acute fractures identified. Right-sided supraspinatus calcific tendinitis is noted. IMPRESSION: Low lung volumes. Otherwise, no acute process within the chest. ACT 112: Negative or not required by law. Electronically signed by: Elias Sylvester M.D. 11/28/2022 8:13 AM Chest CTA 11/28/22 08:35 CHEST CTA for AORTIC DISSECTION CT DOSE: 767.23 mGy.cm HISTORY: Chest pain extend into back and bilateral upper extremity TECHNIQUE: Multiaxial CT images of the chest were performed both before and after the intravenous administration of contrast to evaluate the aorta. Maximal intensity projection images were also obtained. A dose lowering technique was utilized adhering to the principles of ALARA. COMPARISON STUDY: None. FINDINGS: No acute fractures identified within the chest. No pneumothorax. There is mild diffuse bronchial wall thickening. Otherwise, the central airways are patent. Mild emphysema is noted. There is a 3 mm nodule within the left lower lobe on image 194. There are 2 subcentimeter nodules within the left lower lobe on image 143 with the largest measuring 4 mm. There is a 5 mm subpleural nodule along the left major fissure on image 150. Patchy groundglass densities within the lower lobes posteriorly are nonspecific but favor dependent change/atelectasis. A mild pneumonitis could also have a similar appearance in the appropriate clinical setting. No evidence for pulmonary edema. Noncontrast imaging through the chest shows no evidence for an intramural hematoma within the thoracic aorta. The thoracic aorta is normal and course and caliber with no evidence for a dissection. The heart is top normal in size. The central pulmonary arteries are patent. A 5 mm right thyroid nodule does not meet CT criteria for follow-up. Limited views of the upper abdomen demonstrate a normal liver, spleen, and adrenal glands. Prior cholecystectomy. Normal esophagus. No mediastinal or hilar lymphadenopathy. IMPRESSION: 1. No evidence for an aortic dissection. 2. The central pulmonary arteries are patent. 3. Mild emphysema. 4. Patchy groundglass densities within the lower lobes posteriorly are nonspec ific but favor dependent change/atelectasis. A mild pneumonitis could also have a similar appearance in the appropriate clinical setting. 5. A few scattered subcentimeter pulmonary nodules which measure up to 5 mm as described above. Please refer to below summary of Fleischner criteria recommendations for follow- up of incidental CT nodules (Farideh Person, Guidelines for management of small pulmonary nodules detected on CT scans: A statement from the Fleischner Society, Radiology 237: [phone].) SOLID NODULES Solitary nodule size: <6 mm * Low risk patients: no follow-up needed * high risk patients: optional CT at 12 months Solitary nodule size: 6-8 mm * Low risk patients: follow-up at 6-12 months, then consider further follow-up at 18-24 months * high risk patients: initial follow-up CT at 6-12 months and then at 18-24 months if no change Solitary nodule size: >8 mm * either low or high risk patients - consider follow-up CT at 3 months, and/or CT-PET, and/or biopsy Multiple nodules size: <6 mm * Low risk patients: no routine follow-up * high risk patients: optional CT at 12 months Multiple nodules size: 6-8 mm * Low risk patients: follow-up at 3-6 months, then consider further follow-up at 18-24 months * high risk patients: follow-up at 3-6 months, then at 18-24 months if no change Multiple nodules size: >8 mm * Low risk patients: follow-up at 3-6 months, then consider further follow-up at 18-24 months * high risk patients: follow-up at 3-6 months, then at 18-24 months if no change Note: newly detected indeterminate nodule in persons 35 years of age or older. * Low risk patients: minimal or absent history of smoking and/or other known risk factors * high risk patients: history of smoking or of other known risk factors (e.g. first degree relative with lung cancer, or exposure to asbestos, radon, uranium) * if a nodule up to 8 mm is partly solid or is ground glass further follow-up is required after 24 months to exclude possible slow growing adenocarcinoma (PEDRO) SUBSOLID NODULES Solitary pure ground-glass nodule * nodule size <6 mm - no CT follow-up required * nodule size >=6 mm - follow-up CT at 6-12 months, then every 2 years until 5 years Solitary part-solid nodule * nodule size <6 mm - no CT follow-up required * nodule size >=6 mm - follow-up CT at 3-6 months. If unchanged, and solid component remains <6 mm, then annual follow-up for 5 years Multiple subsolid nodules * nodule size <6 mm - follow-up CT at 3-6 months, consider further follow-up at 2 and 4 years if stable * nodule size >=6 mm - follow-up CT at 3-6 months, subsequent management based on the most suspicious nodule(s) ACT 112: Negative or not required by law. Electronically signed by: Elias Sylvester M.D. 11/28/2022 9:16 AM ECG Additional Comments: Ekg done on 28 november was reviewed Code Status & VTE Plan Code Status Patient is a full code. was reviewed by me. I also spoke to patient about it as well. VTE Prophylaxis Plan VTE Prophylaxis will be ordered: Yes
[2022-11-28] MEDS: NICOTINE 21 MG/24 HR TDSY TD SCH (13:11)
[2022-11-28] MEDS: buprenorphine HCL 8 MG SUBL SL SCH ×2 (13:11→20:13)
[2022-11-28] MEDS ORDERED: METOPROLOL TARTRATE 25 MG TAB PO SCH (14:00)
[2022-11-28] MEDS ORDERED: METOPROLOL TARTRATE 25 MG TAB PO STA (15:15)
[2022-11-28] MEDS ORDERED: METOPROLOL TARTRATE 1 MG/ML VIAL IV STA (15:16)
--- NOTE | 2022-11-28 15:18 | XCELERA ---
[id number] \\[email or web address]\[id number]
[2022-11-28 18:05] LABS: BUN Creatinine Ratio 11.8 (10-20); Calcium 8.5 mg/dl (8.6-10.3); Creatinine Clr Calc Pharmacy 110.9 ml/min; Est GFR (African American) 122.8 ml/min; Magnesium 2.1 mg/dl (1.7-2.4); Potassium 3.4 mmol/L (3.5-5.1)
[2022-11-28] MEDS: METOPROLOL TARTRATE 25 MG TAB PO SCH (20:15)
[2022-11-28] MEDS: TICAGRELOR 90 MG TAB PO SCH (20:15)
[2022-11-29 04:27] LABS: BUN Creatinine Ratio 15.2 (10-20); Chol HDL Ratio 5.3 (0-5); Creatinine Clr Calc Pharmacy 119.3 ml/min; Est GFR (African American) 126.6 ml/min; Est GFR (Non-African American) 109.2 ml/min; Potassium 4.1 mmol/L (3.5-5.1)
[2022-11-29 04:29] LABS: Basophils # (auto) 0.06 K/uL (0-0.2); Basophils % (auto) 0.5 %; Eosinophils # (auto) 0.08 K/uL (0-0.50); Eosinophils % (auto) 0.7 %; Hematocrit (blood only) 50.6 % (42.0-52.0); Hemoglobin 17.6 g/dl (14.0-18.0); Immature Granulocytes # (auto) 0.06 K/uL (0.01-0.20); Immature Granulocytes % (auto) 0.5 %; Lymphocytes # (auto) 2.64 K/uL (1.2-3.4); Lymphocytes % (auto) 22.5 %; Mean Corpuscular Hemoglobin 32.7 pg (25.0-34.0); Mean Corpuscular Hgb Conc 34.8 g/dL (32.0-36.0); Mean Corpuscular Volume 93.9 fL (80.0-100.0); Mean Platelet Volume 9.6 fL (9.4-12.4); Monocytes # (auto) 1.22 K/uL (0.11-0.59); Monocytes % (auto) 10.4 %; Neutrophils # (auto) 7.68 K/uL (1.40-6.50); Neutrophils % (auto) 65.4 %; Platelet Count 299 K/uL (130-400); RDW Standard Deviation 44.3 fL (36.4-46.3); Red Blood Count 5.39 M/uL (4.70-6.10); White Blood Count 11.74 K/ul (4.8-10.8)
[2022-11-29] MEDS ORDERED: buprenorphine HCL 8 MG SUBL SL SCH (05:35)
[2022-11-29] MEDS: buprenorphine HCL 8 MG SUBL SL SCH ×2 (05:57→13:12)
[2022-11-29 07:46] LABS: Estimated Average Glucose 111 mg/dl; Hemoglobin A1C 5.5 % (4.5-5.6)
[2022-11-29] MEDS: TICAGRELOR 90 MG TAB PO SCH (08:13)
[2022-11-29] MEDS: NICOTINE 21 MG/24 HR TDSY TD SCH (08:14)
[2022-11-29] MEDS: METOPROLOL TARTRATE 25 MG TAB PO SCH (08:14)
--- NOTE | 2022-11-29 08:44 | Cardiology Progress Note ---
Date of Service November 29, 2022 Assessment & Plan (1) CAD (coronary artery disease): Plan: Acute 100% distal circumflex occlusion post single PETEY Mild nonculprit CAD 2. Preserved LV functioninferolateral wall motion abnormality 3. NSVT/Ventricular ectopy 4. Dyslipidemia 5. Tobacco abuse Patient remains chest pain-free. Troponin peaked. LV function preserved on echo. No signs of heart failure on exam. No apparent access site complications. Frequent ventricular ectopy yesterday afternoon/evening, reduced overnight. Plan to transition ticagrelor to clopidogrel. We will give loading dose 300 mg later this afternoon. Continue DAPT with aspirin, clopidogrel for 1 year Increase metoprolol to 50 mg twice daily, continue current lisinopril Continue current statin Stressed smoking cessation Up walking in halls and continue to monitor on telemetry this morning/early afternoon. If minimal ventricular ectopy okay for discharge late afternoon. Follow-up with me in 2 weeks and we will discuss cardiac rehab. Admission and Anticipated Discharge Date Admission Date: November 28, 2022 Subjective Feeling well this morning. Denies any chest pain. No other new concerns. Tele reviewed -- NSVT yesterday afternoon with frequent ventricular ectopy. Less starting ~8pm last night. Still with brief runs overnight ~5 beats around 5 AM. Physical Exam Physical Exam: General: Comfortable HEENT: Sclerae anicteric Lungs: Coarse breath sounds, no crackles Cardiac: Regular rate and rhythm, no murmurs. Vascular: Right radial artery access site with no ecchymosis, hematoma. Distal pulse and sensation intact. Abdomen: Soft, nontender Extremities: Well perfused, no peripheral edema Neuro: Nonfocal Psych: Alert orient x3, normal affect and mood Results & Data Vital Signs (Past 12 Hours) Vital Signs Temp Pulse Pulse Resp BP Pulse Ox O2 Del Method 11/29/22 07:39 97.5 F L 73 20 124/75 94 Room Air 11/29/22 03:32 97.9 F 69 18 112/74 91 Room Air 11/28/22 22:13 69 11/28/22 22:25 98.1 F 74 18 103/70 93 Room Air PG Care Time/CCT Total # of Minutes Spent Total Time Spent with Patient: Total time spent is greater than 50% in coordination of care (as documented) at patient's floor/unit and/or counseling patient: Coding Level of Care Code 92080 SUB INP/OBS CARE MIN Diagnoses CAD (coronary artery disease) I25.10
[2022-11-29] MEDS ORDERED: METOPROLOL TARTRATE 50 MG TAB PO SCH (09:00)
[2022-11-29] MEDS ORDERED: PANTOprazole 40 MG TAB PO SCH (09:00)
[2022-11-29] MEDS ORDERED: ATORVASTATIN 40 MG TAB PO SCH (09:00)
[2022-11-29] MEDS ORDERED: lisinopril 5 MG TAB PO SCH (09:00)
[2022-11-29] MEDS ORDERED: ASPIRIN 81 MG ECTAB PO SCH (09:00)
--- NOTE | 2022-11-29 12:07 | Hospitalist Progress Note ---
Date of Service November 29, 2022 Assessment & Plan (1) ACS (acute coronary syndrome): Plan: Presented with episodes of chest pain and noted to have very high troponin in the emergency room EKG was nondiagnostic for ST elevation [place] Went to cardiac cath directly from the emergency room and noted to have -100% distal circumflex occlusion status post single PETEY -Echo of the heart showed preserved LV function with inferolateral wall motion abnormality -Noted to have NSVT/ventricular ectopy -Appreciate cardiology input and recommendation We will have dual antiplatelet therapy for 1 year and beta-swati as advised with continuation of lisinopril and statin -Likely to be discharged this afternoon (2) Opioid use disorder: Plan: Strongly advised to quit using drugs (3) Chest pain: Plan: No more chest pain (4) CAD (coronary artery disease): (5) Elevated troponin: (6) Tobacco abuse: Plan: smoking cessation advised Opioid use disorder : continue subutex 24 mg Cardiac Rehab ordered Code status:full coed Admission and Anticipated Discharge Date Admission Date: November 28, 2022 Subjective 11/29/2022 The patient was seen and examined in telemetry unit in presence of the He denies any symptoms whatsoever and wants to go home Was seen by sailing instructor in the morning and advised to walk around the hallway and make sure there is no arrhythmias Likely to be discharged this afternoon Physical Exam Physical Exam: Lying in bed comfortable Constitutional: well developed, well nourished and + obese; not ill appearing Eyes: PERRL, conjunctivae normal, anicteric sclerae ENMT: external ear and nose normal, oropharynx normal Neck: trachea midline, no thyromegaly Respiratory: no respiratory distress Auscultation: lungs clear to auscultation bilaterally Cardiovascular: Rate/Rhythm: regular rate and regular rhythm; not tachycardic Heart Sounds: normal S1 and normal S2; no murmur Extremities: no edema Gastrointestinal (Abdomen): Inspection/Auscultation: normal bowel sounds; abdomen not distended Percussion/Palpation: abdomen soft; abdomen nontender Musculoskeletal: No acute arthritis involving any of the joint Neurologic: normal touch/pain/proprioception and moves all extremities; no focal motor deficits Psychiatric: A+Ox3, euthymic affect Lymphatic: no cervical or axillary lymphadenopathy Results & Data Results & Data Vital Signs (Past 12 Hours) Vital Signs Temp Pulse Resp BP Pulse Ox O2 Del Method 11/29/22 11:32 36.5 C 69 18 104/67 96 Room Air 11/29/22 07:39 36.4 C L 73 20 124/75 94 Room Air 11/29/22 03:32 36.6 C 69 18 112/74 91 Room Air Laboratory Results Short CBC 11/29/22 Range/Units 03:49 WBC 11.74 H (4.8-10.8) K/ul Hgb 17.6 (14.0-18.0) g/dl Hct 50.6 (42.0-52.0) % Plt Count 299 (130-400) K/uL BMP 11/28/22 11/29/22 17:32 03:49 Sodium 138 137 Potassium 3.4 L D 4.1 D Chloride 105 106 Carbon Dioxide 26 25 BUN 10 12 Creatinine 0.85 0.79 Glucose 147 H 99 Calcium 8.5 L 9.0 Medications Administered Current Inpatient Medications Acetaminophen (Acetaminophen 325 Mg Tab) 650 mg PO Q4H PRN PRN Reason: MILD Pain (Scale 1,2,3) Stop: 12/28/22 10:50 Aspirin (Aspirin 81 Mg Ectab) 81 mg PO [facility] Stop: 12/29/22 08:59 Last Admin: 11/29/22 08:14 Dose: 81 mg Atorvastatin Calcium (Atorvastatin 40 Mg Tab) 80 mg PO [facility] Stop: 12/29/22 08:59 Last Admin: 11/29/22 08:14 Dose: 80 mg Buprenorphine HCl (Buprenorphine Hcl 8 Mg Subl) 8 mg SL Q8 [facility] Stop: 12/29/22 05:59 Last Admin: 11/29/22 05:57 Dose: 8 mg Clopidogrel Bisulfate (Clopidogrel Bisulfate 75 Mg Tab) 75 mg PO [facility] Stop: 12/30/22 08:59 Clopidogrel Bisulfate (Clopidogrel Bisulfate 300 Mg Tab) 300 mg PO ONE ONE Stop: 11/29/22 16:01 Lisinopril (Lisinopril 5 Mg Tab) 5 mg PO [facility] Stop: 12/29/22 08:59 Last Admin: 11/29/22 08:14 Dose: 5 mg Metoprolol Tartrate (Metoprolol Tartrate 50 Mg Tab) 50 mg PO BID [facility] Stop: 12/29/22 08:59 Last Admin: 11/29/22 09:07 Dose: 50 mg Miscellaneous (Remove Nicoderm Patch) 1 each N/A DAILY@0859 [facility] Stop: 12/29/22 08:58 Last Admin: 11/29/22 08:17 Dose: 1 each Nicotine (Nicotine 21 Mg/24 Hr Tdsy) 21 mg TD QAM [facility] Stop: 12/28/22 11:29 Last Admin: 11/29/22 08:14 Dose: 21 mg Nitroglycerin (Nitroglycerin Sl 0.4 Mg/Tab Tab) 0.4 mg SL PRN PRN PRN Reason: Chest Pain Stop: 12/28/22 10:50 Pantoprazole Sodium (Pantoprazole 40 Mg Tab) 40 mg PO DAILY [facility] Stop: 12/29/22 08:59 Last Admin: 11/29/22 08:14 Dose: 40 mg
--- NOTE | 2022-11-29 12:57 | Electrocardiogram Report ---
Test Reason : Blood Pressure : / mmHG Vent. Rate : 089 BPM Atrial Rate : 089 BPM P-R Int : 158 ms QRS Dur : 108 ms QT Int : 362 ms P-R-T Axes : 064 067 065 degrees QTc Int : 440 ms Normal sinus rhythm with sinus arrhythmia Incomplete right bundle branch block Abnormal ECG Borderline ECG No previous ECGs available Confirmed by Herrera Devi ([id number]) on 11/29/2022 12:57:16 PM Referred By: REFERRED SELF Confirmed By:Herrera Devi
[2022-11-29] MEDS ORDERED: CLOPIDOGREL BISULFATE 300 MG TAB PO ONE (16:00)
--- NOTE | 2022-11-30 08:37 | Discharge Summary ---
Date of Service November 29, 2022 Admission HPI Per Admitting Provider 42 year old male with episodes of chest pain started last night at 1 am . was a 10/10 internsity lasted for a few hours and hence decided to come to hospital. Pain is retrosternal and radiating to the jaw and both hands. no headaches or loss of consciousness. no shortness of breath. no recent travel . No history of recent drug intake is on a stable dose of subutex for more than 2 yrs no fevers. was seen in the Er as a heart alert. initial ct for pulmonary embolism was negative. Patient was noted to have a nstemi. ( elevated trops) Cardiac cath showed 1. Acute 100% distal circumflex occlusion 2. Mild non-culprit coronary artery disease -30% ostial circumflex with successful PCI of distal circumflex occlusion with single drug-eluting stent (2.5 x 26 mm Endy; postdilated with 3.5 NC). Patient was interviewed post cath and showed no evidence of sedation or increased bleeding in the right wrist. Admission Exam Per Admitting Provider Physical Exam: Neuro: AAOx4, PERRLA, no aphasia , no memory changes, HEENT: head normocephalic, moist mucus membranes CV: S1/S2, (-) M/G/R, (-) edema, cap refill < 3 seconds Resp: Lungs CTA in all cesar. On RA GI: Abdomen S/NT/ND, Ax4 bowel sounds, (-) CVA tenderness Musculoskeletal: 5/5 B/L UE strength, 5/5 B/L LE strength. No gait disturbance Skin: (-) rashes , (-) erythema. Psych: normal affect right wrist shows no evidence of bleeding Principal Diagnosis ACS status post cardiac cath and stent placement in distal circumflex artery Discharge Exam Lying in bed comfortable Constitutional well developed, well nourished and + obese; not ill appearing Eyes PERRL, conjunctivae normal, anicteric sclerae ENMT external ear and nose normal, oropharynx normal Neck trachea midline, no thyromegaly Respiratory no respiratory distress Auscultation: lungs clear to auscultation bilaterally Cardiovascular Rate/Rhythm: regular rate and regular rhythm; not tachycardic Heart Sounds: normal S1 and normal S2; no murmur Extremities: no edema Gastrointestinal (Abdomen) Inspection/Auscultation: normal bowel sounds; abdomen not distended Percussion/Palpation: abdomen soft; abdomen nontender Neurologic normal touch/pain/proprioception and moves all extremities; no focal motor deficits Psychiatric A+Ox3, euthymic affect Lymphatic no cervical or axillary lymphadenopathy Discharge Data Allergies Allergy/AdvReac Type Severity Reaction Status Date / Time No Known Allergies Allergy Verified 09/09/18 16:47 Consultations 11/28/22 09:31 ED Decision to Admit Stat 11/28/22 10:56 Consult Cardiac Rehabilitation Routine Procedures Performed Operation Date: 11/28/22 07:15 Actual Procedures p Cineradiography w/Routine Exam - Clem Walker MD s Cath, Left with Cors and Vent - Clem Walker MD s Aspiration/PCI w/PETEY for Stemi - Clem Walker MD Ordered Studies 11/28/22 07:10 CL Cath Imgs for PACS use only Stat 11/28/22 08:35 CT angio chest dissec wo/w con Stat Hospital Course (1) ACS (acute coronary syndrome): Presented with episodes of chest pain and noted to have very high troponin in the emergency room EKG was nondiagnostic for ST elevation NE Went to cardiac cath directly from the emergency room and noted to have -100% distal circumflex occlusion status post single PETEY -Echo of the heart showed preserved LV function with inferolateral wall motion abnormality -Noted to have NSVT/ventricular ectopy -Appreciate cardiology input and recommendation We will have dual antiplatelet therapy for 1 year and beta-swati as advised with continuation of lisinopril and statin -Likely to be discharged this afternoon (2) Opioid use disorder: Strongly advised to quit using drugs (3) Chest pain: No more chest pain (4) CAD (coronary artery disease): (5) Elevated troponin: (6) Tobacco abuse: smoking cessation advised Opioid use disorder : continue subutex 24 mg Cardiac Rehab ordered Code status:full coed Total Time Total Time Spent Total Time Spent (In Minutes): 35 minutes Discharge Plan Discharge Items Patient Disposition: Home - Self-Care Reason For Visit: ACS Discharge Diagnosis: ACS status post cardiac cath and stent placement in distal circumflex artery Condition on Discharge: Good Activity: Resume your previous activity Non-emergency contact: Primary Care Provider Call non-emergency contact if: you have any medication questions and your symptoms worsen Follow-up/Referrals: Clem Walker MD [Physician] - (The cardiology office will call you with a follow up appointment.) Riki Albert MD [Hospitalist] - (Date & Time 12/03/2022 11:20 AM Provider Riki Albert MD Department Family Medicine [facility] ) Diet: Heart Healthy Addtl Attending Provider Instructions: Please take your medications as advised You should continue your aspirin and Plavix for at least 1 year Please keep appointments with your healthcare providers Pending Studies at Discharge: No Stand-Alone Forms: My [facility] [employer], Smoking Cessation Medications and DC Order Prescriptions: New nicotine [Nicoderm CQ] 21 mg/24 hr Patch 24 Hour 21 mg transdermal QAM Qty: 28 0RF clopidogrel 75 mg Tablet 75 mg PO QAM Qty: 30 0RF atorvastatin 40 mg Tablet 80 mg PO QAM Qty: 60 0RF lisinopril [Zestril] 5 mg Tablet 5 mg PO QAM Qty: 30 0RF metoprolol tartrate 50 mg Tablet 50 mg PO BID Qty: 60 0RF aspirin 81 mg Tablet,Delayed Release (Dr/Ec) 81 mg PO QAM 30 Days Qty: 30 0RF pantoprazole 40 mg Tablet,Delayed Release (Dr/Ec) 40 mg PO DAILY Qty: 30 0RF nitroglycerin [Nitrostat] 0.4 mg Tablet, Sublingual 0.4 mg sublingual PRN PRN (Reason: chest pain) Qty: 25 0RF Rx Instructions: As directed Continued buprenorphine HCl 8 mg tablet, sublingual 8 mg SUBLINGUAL TID Discharge Orders: Discharge Order (Routine); Ordered 11/29/22 Ordered By: Taylor Sims Admission Data Admit Date/Time: 11/28/22 10:56 Attending Provider: Taylor Sims Admit Provider: Clem Walker Primary Care Provider: PCP,NO Other Providers: Toy Vasquez Other Interventions: Discharge Summary Assessment (RN) Last Done: 11/29/22 15:38
[2022-11-30] MEDS ORDERED: CLOPIDOGREL BISULFATE 75 MG TAB PO SCH (09:00)
--- NOTE | 2022-11-30 10:38 | Electrocardiogram Report ---
Test Reason : Blood Pressure : / mmHG Vent. Rate : 081 BPM Atrial Rate : 081 BPM P-R Int : 178 ms QRS Dur : 110 ms QT Int : 372 ms P-R-T Axes : 077 060 060 degrees QTc Int : 432 ms Sinus rhythm with sinus arrhythmia with frequent , and consecutive Premature ventricular complexes Incomplete right bundle branch block Abnormal ECG When compared with ECG of 28-NOV-2022 07:09, (unconfirmed) Premature ventricular complexes are now Present Confirmed by Herrera Devi ([id number]) on 11/30/2022 10:38:13 AM Referred By: REFERRED SELF Confirmed By:Herrera Devi
--- NOTE | 2022-11-30 16:44 | Electrocardiogram Report ---
Test Reason : Blood Pressure : / mmHG Vent. Rate : 082 BPM Atrial Rate : 082 BPM P-R Int : 160 ms QRS Dur : 106 ms QT Int : 388 ms P-R-T Axes : 073 039 060 degrees QTc Int : 453 ms Normal sinus rhythm Incomplete right bundle branch block Borderline ECG When compared with ECG of 28-NOV-2022 14:07, (unconfirmed) Premature ventricular complexes are no longer Present Confirmed by Herrera Devi ([id number]) on 11/30/2022 4:43:25 PM Referred By: REFERRED SELF Confirmed By:Herrera Devi
== END 2022-11-29 17:07 | disposition home or self-care (01) | DRG 247 ==
LOC: ED 07:03 → 2S 09:49 → SUATTDRO 10:56 → 2S 10:56